=== PATIENT | female | born 1975 | race Caucasian/White ===

== ENCOUNTER 2019-02-03 06:26 | Outpatient (CLI) | payer BC ==
[~2019-02-03] VITALS: Ht 170.2 cm; Wt 118.0 kg
== END 2019-02-03 16:16 | disposition home or self-care (01) ==
LOC: PREOP 06:26
PROVIDERS: ATTEND Obstetrics & Gynecology
DX: Z01.818 Encounter for other preprocedural examination (principal)

== ENCOUNTER 2019-02-10 07:59 | Day surgery (SDC) | payer BC ==
[2019-02-10] VITALS (9 sets, daily range): BP systolic 122–147; BP diastolic 65–101
[~2019-02-10] VITALS: Ht 170 cm; Wt 122.7 kg
[2019-02-10] MEDS ORDERED: BUPIVACAINE 0.25% 30 ML (SENSORCAINE) VIAL ONE (08:00)
[2019-02-10] MEDS ORDERED: LACTATED RINGERS 1,000 ML IV PRN (08:12)
[2019-02-10] MEDS ORDERED: DEXAMETHASONE 10 MG/ML (DECADRON) 1 ML VIAL ONE (08:26)
[2019-02-10] MEDS ORDERED: LIDOCAINE PF 2% 5 ML (XYLOCAINE) VIAL ONE (08:26)
[2019-02-10] MEDS ORDERED: proPOfol 200 MG/20 ML (DIPRIVAN) VIAL IV ONE (08:26)
[2019-02-10] MEDS ORDERED: ONDANSETRON 4 MG/2 ML (SDV) Z0FRAN ONE (08:26)
[2019-02-10] MEDS ORDERED: KETOROLAC 30 MG/ML VIAL ONE (08:26)
[2019-02-10] MEDS ORDERED: MIDAZOLAM 2 MG/2 ML (VERSED) VIAL ONE (08:27)
[2019-02-10] MEDS ORDERED: fentaNYL INJECTION 100 MCG/2 ML AMP ONE (08:27)
--- NOTE | 2019-02-10 08:35 | NUR ---
respiratory therapy at bedside for incentive spirometry teaching
--- NOTE | 2019-02-10 08:48 | Progress Note-Pre Operative ---
Pre-Operative Progress Note H&P Reviewed The H&P was reviewed, patient examined and no changes noted. Date Seen by Provider: Feb 10, 2019 Time Seen by Provider: 08:45 Date H&P Reviewed: Feb 10, 2019 Time H&P Reviewed: 08:45 Pre-Operative Diagnosis: AUB, BMI 42, Enlarged uterus SORAIDA OWENS DO Feb 10, 2019 08:48
[2019-02-10] MEDS ORDERED: D5 LR IV SOLUTION 1,000 ML IV SCH (08:49)
[2019-02-10] MEDS ORDERED: IBUP-1773 PO (08:56)
[2019-02-10] MEDS ORDERED: ACHD5005 PO (08:56)
[2019-02-10 08:57] LABS: BASOPHILS % (AUTO) 0 % (0-10); EOSINOPHILS # (AUTO) 0.2 10^3/uL (0.0-0.3); EOSINOPHILS % (AUTO) 3 % (0-10); HEMATOCRIT 38 % (35-52); HEMOGLOBIN 12.6 G/DL (11.5-16.0); LYMPHOCYTES # (AUTO) 1.5 X 10^3 (1.0-4.0); LYMPHOCYTES % (AUTO) 26 % (12-44); MEAN CORPUSCULAR HEMOGLOBIN 30 PG (25-34); MEAN CORPUSCULAR HGB CONC 33 G/DL (32-36); MEAN CORPUSCULAR VOLUME 91 FL (80-99); MEAN PLATELET VOLUME 10.9 FL (7.4-10.4); MONOCYTES # (AUTO) 0.4 X 10^3 (0.0-1.0); MONOCYTES % (AUTO) 7 % (0-12); NEUTROPHILS # (AUTO) 3.7 X 10^3 (1.8-7.8); NEUTROPHILS % (AUTO) 64 % (42-75); PLATELET COUNT 247 10^3/uL (130-400); RED CELL DISTRIBUTION WIDTH 13.5 % (10.0-14.5); WHITE BLOOD COUNT 5.8 10^3/uL (4.3-11.0)
--- NOTE | 2019-02-10 08:57 | Discharge Inst-Women's Service ---
Discharge Inst-Women's Serv Depart Medication/Instructions New, Converted or Re-Newed RX: RX on Chart Problems Reviewed?: Yes Consults/Follow Up Additional Follow Up: Yes Orders/Referrals Dr. Owens in 2-3 weeks Activity Activity: Activity as Tolerated Driving Instructions: No Driving for 1 Week NO SMOKING: NO SMOKING Nothing Inside Vagina: No Douching, No [place], No Tampons Diet Discharge Diet: No Restrictions Symptoms to Report to : Bleeding Excessive, Pain Increased, Fever Over 101 Degrees F, Vaginal Bleeding Increase, Questions/Concerns For Any Problems or Questions: Contact Your Physician SORAIDA OWENS DO Feb 10, 2019 08:57
[2019-02-10] MEDS ORDERED: KETOROLAC 30 MG/ML VIAL IVP ONE (09:00)
[2019-02-10] MEDS ORDERED: HYDROcodone/APAP 5 MG/325 MG (LORTAB) TAB PO PRN (09:00)
[2019-02-10] MEDS ORDERED: ONDANSETRON 4 MG/2 ML (SDV) Z0FRAN IVP PRN ×3 (09:00→09:45)
[2019-02-10] MEDS ORDERED: SEVOFLURANE (ULTANE) 15 ML INHAL SOLN ONE ×3 (09:11→09:12)
[2019-02-10] MEDS ORDERED: morphine INJ 10 MG/ML 1ML (SYR OR VIAL) IVP ONE ×2 (09:45)
--- NOTE | 2019-02-10 10:09 | Anesthesia-General Post-Op ---
General Patient Condition Mental Status/LOC: Same as Preop Cardiovascular: Satisfactory Nausea/Vomiting: Absent Respiratory: Satisfactory Pain: Controlled Complications: Absent Post Op Complications Complications None Follow Up Care/Instructions Patient Instructions None needed. Anesthesia/Patient Condition Patient Condition Patient is doing well, no complaints, stable vital signs, no apparent adverse anesthesia problems. No complications reported per nursing. DESI JEREZ CRNA Feb 10, 2019 10:09
--- NOTE | 2019-02-10 18:57 | OPERATIVE REPORT ---
DATE OF SERVICE: 02/10/2019 PREOPERATIVE DIAGNOSIS: A 43-year-old female with abnormal uterine bleeding. POSTOPERATIVE DIAGNOSIS: A 43-year-old female with abnormal uterine bleeding. PROCEDURE PERFORMED: D and C. SURGEON: Soraida Owens DO ANESTHESIA: General endotracheal. ESTIMATED BLOOD LOSS: Minimal. URINE OUTPUT: 100 mL, clear at the end of the procedure. FLUIDS: 500 mL lactated Ringer solution. FINDINGS: There is a grossly normal-appearing external female genitalia including normal vaginal mucosa and cervix, moderate to large amount of endometrial curetting tissue. SPECIMEN SENT: Endometrial curettings. INDICATIONS FOR PROCEDURE: This 39-year-old female was seen in consultation in my office for continuation of abnormal uterine bleeding despite more conservative management options. Ultrasound imaging was reviewed with the patient in detail in the office. We discussed endometrial biopsy in the office; however, we also discussed D and C. The reason endometrial biopsy was not taken as an option because its lack of management of her bleeding. We discussed how D and C would give us both diagnostic measures as well as potential to be curative. Risks of the procedure were discussed with the patient in detail including risk of bleeding, infection, damage to surrounding structures including, but not limited to the uterus itself. All of her questions were answered in the preoperative area with her present. After all of those were answered to her satisfaction, consent was obtained. The patient was taken to the operating room. OPERATIVE REPORT IN DETAIL: Once in the operating room, general anesthesia was found to be adequate, placed in dorsal lithotomy position, prepped and draped in normal sterile fashion. A timeout was performed. A weighted speculum was inserted in the patient's vagina. Right angle retractor was used to visualize the cervix. It was grasped at 12 o'clock position using a long Allis clamp. A paracervical block was then performed at 3 o'clock and 9 o'clock positions, 0.25% Marcaine with 5 mL were injected at each site. Care was taken to aspirate before injecting. I then gently sound the uterine cavity, depth was found to be approximately 8 cm. I then gently dilated the cervix using Bella dilators to maximum dilatation approximately 1 cm, at which point I performed a gentle curetting of the endometrium using a small endometrial curette. This was done on several passes. A moderate to copious amount of endometrial tissue was collected in doing so after which there was no active bleeding noted from any of my dissection planes. I then removed all the instruments from the patient's vagina. The patient tolerated the procedure well and sent to recovery in stable condition. Lap and sponge counts were correct at the end of the procedure. Instrument counts correct as well. Job ID: [id number] DocumentID: [id number] Dictated Date: 02/10/2019 09:22:42 Gas Load Dispatcher Date: 02/10/2019 18:56:05 Dictated By: SORAIDA OWENS DO
== END 2019-02-10 11:20 | disposition home or self-care (01) ==
LOC: SDC 07:59
PROVIDERS: ATTEND Obstetrics & Gynecology
DX: N85.8 Other specified noninflammatory disorders of uterus (principal); N93.9 Abnormal uterine and vaginal bleeding, unspecified; N85.2 Hypertrophy of uterus; E66.01 Morbid (severe) obesity due to excess calories; Z68.41 Body mass index [BMI] 40.0-44.9, adult; Z90.89 Acquired absence of other organs; Z82.49 Family history of ischemic heart disease and other diseases of the circulatory system; Z82.0 Family history of epilepsy and other diseases of the nervous system
CPT/HCPCS: 36415; 84703; 85025; 86850; 86900; 86901; 87081

== ENCOUNTER → 2020-06-30 | Outpatient (CLI) | payer BC ==
[~2020-06-30] MED LIST: ACHD5005 PO; IBUP-1773 PO
--- NOTE | 2020-07-01 18:00 | Diagnostic Imaging Report ---
EXAM: Digital mammogram, bilateral screening. This study was compared to the prior exam of 06/02/2019. At this time, there are no current complaints. The current study was also evaluated with a Computer Aided Detection (CAD) system. FINDINGS: The fibroglandular tissue in both breasts is heterogeneously dense. This does limit the sensitivity of this exam. Overall, there does not appear to have been any significant change when compared to the prior study. No primary or secondary sign of malignancy is noted. IMPRESSION: There is no radiographic evidence for malignancy. ACR category 1 ACR BI-RADS Category 1: Negative. Result letter will be mailed to the patient. Note: At least 10% of breast cancer is not imaged by mammography. Dictated on workstation # [id number]
== END ==
LOC: RAD 15:15
PROVIDERS: ATTEND Obstetrics & Gynecology
DX: Z12.31 Encounter for screening mammogram for malignant neoplasm of breast (principal)
CPT/HCPCS: 77063; 77067

== ENCOUNTER → 2021-09-02 | Outpatient (CLI) | payer BC ==
--- NOTE | 2021-09-02 13:28 | Diagnostic Imaging Report ---
Indication: Routine screening. Comparison is made with prior mammogram from 06/30/2020 and 06/02/2019. 2-D and 3-D bilateral screening mammography was performed with CAD. CAD is utilized. The current study was also evaluated with a Computer Aided Detection (CAD) system. Both breast are heterogeneously dense, limiting the sensitivity of mammography. No discrete mass or malignant-appearing microcalcifications are seen. Axillae are unremarkable. IMPRESSION: BI-RADS Category 1 No mammographic features suspicious for malignancy are identified. ACR BI-RADS Category 1: Negative. Result letter will be mailed to the patient. Note: At least 10% of breast cancer is not imaged by mammography. Dictated by: Dictated on workstation # [id number]
== END ==
LOC: RAD 08:21
PROVIDERS: ATTEND Obstetrics & Gynecology
DX: Z12.31 Encounter for screening mammogram for malignant neoplasm of breast (principal)
CPT/HCPCS: 77063; 77067

== ENCOUNTER → 2022-10-25 | Outpatient (CLI) | payer BC ==
--- NOTE | 2022-10-26 10:55 | Diagnostic Imaging Report ---
INDICATION: Routine screening. COMPARISON is made with prior mammograms from 09/02/2021 and 06/30/2020. 2-D and 3-D bilateral screening mammography was performed with CAD. Both breasts are heterogeneously dense, limiting the sensitivity of mammography. The parenchymal pattern is stable. No mass or malignant-appearing microcalcifications are seen. Axillae are unremarkable. IMPRESSION: BI-RADS Category 1 No mammographic features suspicious for malignancy are identified. ACR BI-RADS Category 1: Negative. Result letter will be mailed to the patient. Note: At least 10% of breast cancer is not imaged by mammography. Dictated by: Dictated on workstation # [id number]
== END ==
LOC: RAD 14:21
PROVIDERS: ATTEND Obstetrics & Gynecology
DX: Z12.31 Encounter for screening mammogram for malignant neoplasm of breast (principal)
CPT/HCPCS: 77063; 77067

== ENCOUNTER → 2023-04-18 | Outpatient (CLI) | payer BC ==
--- NOTE | 2023-04-18 14:56 | Diagnostic Imaging Report ---
INDICATION: Palpable mass in the right hip region. FINDINGS: Sonographic interrogation of the area of palpable abnormality in the upper portion of the right hip was performed. There is an area of homogeneous increased echogenicity at the area of palpable abnormality measuring approximately 8.6 x 10.2 x 6.3 cm. This has the appearance of a lipoma. No definite internal vascularity is seen. No cystic masses detected. 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 CT through this region would be useful to ensure the fatty nature of the lesion. Dictated by: Dictated on workstation # [id number]
== END ==
LOC: RAD 12:49
PROVIDERS: ATTEND Surgery
DX: M25.851 Other specified joint disorders, right hip (principal)
CPT/HCPCS: 76881